=== PATIENT | male | born 1985 | race Two or more races ===

== ENCOUNTER 2017-06-13 10:29 | Emergency (ER) | payer MEDICAID ==
[~2017-06-13] VITALS: Ht 170.2 cm; Wt 99.8 kg
[2017-06-13 10:46] VITALS: BP 111/70
[2017-06-13] MEDS ORDERED: SODIUM CHLORIDE 0.9% 1,000 ML IV ONE (11:59)
[2017-06-13] MEDS ORDERED: methylPREDNISolone SOD SUCC 125 MG/2 ML VL IV ONE (12:00)
[2017-06-13] MEDS ORDERED: diphenhdrAMINE HCL 50 MG/1 ML VL IV ONE (12:00)
== END 2017-06-13 13:36 | disposition home or self-care (01) ==
LOC: ER 10:29
DX: L50.0 Allergic urticaria (principal)
CPT/HCPCS: 96361; 96374; 96375; 99284; J1200; J2930; J7030